=== PATIENT | female | born 1975 | race Caucasian/White ===

== ENCOUNTER 2016-11-08 09:34 | Emergency (ER) | payer OTHER ==
[~2016-11-08] VITALS: Ht 177.8 cm; Wt 96.2 kg
[~2016-11-08 09:34] MED LIST: ASPI-630 PO; ATOR40TA PO; ATOR80TA72 PO; CARV12.5 PO; CARV25TA2 PO; DIGO125T PO; GLIP-24 PO; GLIP5TAB10 PO; GUAI-107 PO; LEVO50CA PO; LISI10TA2 PO; LOSA50TA2 PO; MAGN400T22 PO; METF100010 PO; MULT-276 PO; OMEP10CA3 PO; SENN1TAB70 PO; SERT100T8 PO; SERT50TA PO; SPIR25TA3 PO; WARF-78 PO; WARF5TAB7 PO; WARF6TAB PO
[2016-11-08] MEDS ORDERED: HYDR-971 PO (09:52)
[2016-11-08] MEDS ORDERED: PRED20TA PO (09:52)
--- NOTE | 2016-11-08 09:55 | PHYS DOC ---
General Chief Complaint: LOWER EXT PAIN Stated Complaint: HIP PAIN Time Seen by MD: 09:45 Source: patient Exam Limitations: no limitations Problems: History of Present Illness Initial Comments Pt is 41/F to ED c/o right low back/hip/leg pain. Pt denies trauma/strenuous activity, states two days worsening right sided low back muscular pain/R buttock pain with posterior radiation back of right leg. No leg weakness/incontinence/saddle anesthesia. Pain described as 10/10 sharp worse with movement relieved some by rest. No other c/o. Timing/Duration: 24 hours Severity: severe Modifying Factors: worse with movement, improves with rest Associated Symptoms: other Allergies: Coded Allergies: No Known Drug Allergies (Unverified , 07/15/13) Past Medical History Medical History: other (anxiety, CHF, COPD, depression, DM, hypothyroid) Surgical History: other (CS, gastric bypass, TL) Family History Significant Family History: no pertinent family hx Social History Smoker: cigarettes Alcohol: occasionally Drugs: none Review of Systems Constitutional: denies chills, denies fever Respiratory: denies cough, denies shortness of breath Cardiovascular: denies chest pain, denies palpitations Gastrointestinal: denies nausea, denies vomiting Genitourinary: denies frequency, denies hematuria Musculoskeletal: see HPI Psychiatric/Neurological: see HPI Physical Exam General Appearance: moderate distress, obese Ear, Nose, Throat: normal ENT inspection Neck: non-tender, supple Respiratory: normal breath sounds, no respiratory distress Gastrointestinal: non tender, soft Back: no CVA tenderness, no vertebral tenderness Extremities: non-tender, normal inspection Neurologic/Psychiatric: 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 Rx: norco 5mg #15, prednisone. Heating pad to affected area 20 minutes, 4-6 times daily followed by gentle stretching. Follow up with your doctor this week for recheck. May need PT referral. Return to ED with new or changing symptoms. MATILDE KINNEY DO November 08, 2016 09:55
[2016-11-08] MEDS ORDERED: HYDROmorphone PF 1 MG/ML DISP.SYRIN ONE (09:56)
[2016-11-08] MEDS ORDERED: methylPREDNISolone SOD SUCC PF 125 MG/2 ML VIAL. ONE (09:56)
[2016-11-08] MEDS: HYDROmorphone PF 1 MG/ML DISP.SYRIN IM ONE (09:58)
[2016-11-08] MEDS: methylPREDNISolone SOD SUCC PF 125 MG/2 ML VIAL. IM ONE (09:58)
[2016-11-08 10:20] VITALS: BP 154/98
== END 2016-11-08 10:34 | disposition home or self-care (01) ==
LOC: ER 09:34
DX: M54.41 Lumbago with sciatica, right side (principal); J44.9 Chronic obstructive pulmonary disease, unspecified; E11.9 Type 2 diabetes mellitus without complications; E03.9 Hypothyroidism, unspecified; I50.9 Heart failure, unspecified; F17.210 Nicotine dependence, cigarettes, uncomplicated
CPT/HCPCS: 96372; 99284; J1170; J2930; 96374; 96375

== ENCOUNTER 2017-01-23 13:16 | Emergency (ER) | payer OTHER ==
[~2017-01-23] VITALS: Ht 177.8 cm; Wt 86.3 kg
[~2017-01-23 13:16] MED LIST changes: +HYDR-971 PO; +PRED20TA PO
[2017-01-23] MEDS ORDERED: ONDANSETRON PF 4 MG/2 ML VIAL. IV ONE ×2 (13:45→17:45)
[2017-01-23 13:54] LABS: BASO % 1 % (0-3); EOS % 0 % (0-3); HEMATOCRIT 28.3 % (36.0-47.0); HEMOGLOBIN 9.2 g/dL (12.0-15.5); LYMPH # 1.2 x10^3/uL (1.0-4.8); LYMPH % 26 % (24-48); MEAN CORPUSCULAR HEMOGLOBIN 33 pg (25-35); MEAN CORPUSCULAR HGB CONC 32 g/dL (31-37); MEAN CORPUSCULAR VOLUME 102 fL (79-100); MONO # 0.2 x10^3/uL (0.0-1.1); MONO % 5 % (0-9); NEUT # 3.3 x10^3uL (1.8-7.7); NEUT % 69 % (31-73); PLATELET COUNT 88 x10^3/uL (140-400); RED BLOOD COUNT 2.77 x10^6/uL (3.50-5.40); RED CELL DISTRIBUTION WIDTH 21.7 % (11.5-14.5); WHITE BLOOD COUNT 4.8 x10^3/uL (4.0-11.0)
[2017-01-23] MEDS ORDERED: MVI, ADULT NO.4 WITH VIT K 10 ML, FOLIC ACID SYRINGE for ER 1 MG, THIAMINE 100 MG in IV... IV SCH ×4 (14:00)
[2017-01-23 14:05] LABS: PREG TEST PT QUAL NEGATIVE (NEG)
[2017-01-23 14:10] LABS: ACETAMIN < 2.0 mcg/mL (10-30); SALIC < 0.2 mg/dL (2.8-20.0)
--- NOTE | 2017-01-23 14:10 | RAD ---
Single AP chest radiograph 01/23/2017 Clinical indication: Weakness, low blood pressure, jaundice and shortness of air. Comparison: Chest radiograph 09/01/2016. Findings: Prior median sternotomy and mitral valvular repair. Left chest wall cardiac connection device with ventricular and atrial leads in similar position. Cardiac and mediastinal silhouettes are within normal limits. No pleural effusion, pneumothorax or focal consolidation. Impression: Stable elevation of the right hemidiaphragm and mild right basilar atelectasis.
[2017-01-23 14:15] LABS: ALBUMIN 1.3 g/dL (3.4-5.0); CALCIUM 6.1 mg/dL (8.5-10.1); CREATININE 0.7 mg/dL (0.6-1.0); GFR 91.3; TOTAL BILIRUBIN 8.3 mg/dL (0.2-1.0); TOTAL PROTEIN 4.8 g/dL (6.4-8.2)
--- NOTE | 2017-01-23 14:15 | PHYS DOC ---
General Chief Complaint: WEAKNESS/GENERALIZED Stated Complaint: GENERALIZED WEAKNESS Time Seen by MD: 13:17 Source: patient, EMS, old records Problems: History of Present Illness Initial Comments Patient is a 41-year-old female brought to the ED by EMS with an initial complaint of severe sciatica and leg weakness. EMS reports they found the patient in bed hypotensive with liquor bottles scattered about the bedroom. She was found to have low blood pressure initially and normal saline bolus initiated by EMS. On arrival to the department the patient complains of severe weakness, nausea with emesis times one yesterday and greater than 10 loose stools today. Stools described as loose and watery nonbloody the patient denies focal abdominal pain complaints, bloating, or distention. Patient denies alcoholism, her son reports that although she may not drink daily when she does "she drinks a pint of vodka at a time." Patient is a poor historian and appears to be intoxicated on arrival. Family is not present in the department. 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 Patient is disabled due to her heart disease. Timing/Duration: 1 week, getting worse Severity: severe Modifying Factors: worse with eating, worse with movement Associated Symptoms: diaphoresis, headaches, malaise, nausea/vomiting, weakness , other Allergies: Coded Allergies: No Known Drug Allergies (Unverified , 07/15/13) Past Medical History Medical History: other (anxiety, CHF, COPD, depression, diabetes, hypothyroidism, "hepatitis as a child," sciatica, cardiomyopathy, morbid obesity , mitral valve disease secondary to prior Fen/Phen use, hypertension, hypothyroidism) Surgical History: other ( section 2, gastric bypass, mitral valve replacement, pacer/defibrillator placement 2017, tubal ligation) Family History Significant Family History: no pertinent family hx Social History Smoker: greater than 1 pack/day Alcohol: heavy Drugs: other Review of Systems Constitutional: denies chills, denies diaphoresis, denies fever, malaise, weakness EENTM: denies eye pain, denies blurred vision, denies ear pain, denies nose pain, denies throat pain, denies throat swelling, denies mouth pain, denies mouth swelling Respiratory: denies cough, denies shortness of breath, denies wheezing Cardiovascular: denies chest pain, denies palpitations, denies syncope Gastrointestinal: see HPI, abdominal pain, diarrhea, nausea, vomiting Genitourinary: denies dysuria, denies frequency, denies hematuria Musculoskeletal: denies back pain, denies joint swelling, denies neck pain Skin: change in color, denies lesions, denies lumps Psychiatric/Neurological: see HPI, denies headache, denies numbness, denies paresthesia Physical Exam General Appearance: moderate distress (jaundiced/icteric) Eyes: bilateral eye PERRL, bilateral eye EOMI, bilateral eye scleral icterus Ear, Nose, Throat: hearing grossly normal, normal ENT inspection (dry membranes , metallic piercing right nare), normal pharynx Neck: non-tender, supple Respiratory: normal breath sounds, no respiratory distress Cardiovascular: normal peripheral pulses, systolic murmur (mechanical valve) Gastrointestinal: soft (nondistended, diffusely tender to palpation without rebound or guarding, liver 3cm below costal margin, BS diminished) Back: no CVA tenderness, no vertebral tenderness Extremities: normal range of motion, non-tender, normal inspection, no calf tenderness Neurologic/Psychiatric: 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 Interpreted by Dr. Kinney. PATIENT: KIRSTIN GUTIERREZ ACCOUNT: [id number] : 1975 LOCATION: ER AGE: 41 SEX: F EXAM STATUS: REG ER ORD. PHYSICIAN: MATILDE KINNEY DO REASON: sob PROCEDURE: PORTABLE CHEST 1V Single AP chest radiograph 01/23/2017 Clinical indication: Weakness, low blood pressure, jaundice and shortness of air. Comparison: Chest radiograph 09/01/2016. Findings: Prior median sternotomy and mitral valvular repair. Left chest wall cardiac connection device with ventricular and atrial leads in similar position. Cardiac and mediastinal silhouettes are within normal limits. No pleural effusion, pneumothorax or focal consolidation. Impression: Stable elevation of the right hemidiaphragm and mild right basilar atelectasis. DICTATED AND SIGNED BY: NISHA JOSHI MD DATE: 01/23/17 1405 CC: PHYLICIA BUENO APRN; MATILDE KINNEY DO ~ PATIENT: KIRSTIN GUTIERREZ ACCOUNT: [id number] : 1975 LOCATION: ER AGE: 41 SEX: F EXAM STATUS: REG ER ORD. PHYSICIAN: MATILDE KINNEY DO REASON: n/v/d, jaundice PROCEDURE: CT ABD PELV W/ IV CONTRST ONLY CT of the abdomen and pelvis with contrast, 01/23/2017: History: Jaundice, weakness, recent falls Noncontrast scans were obtained following an IV bolus injection of iodinated contrast material. The scans through the lung bases demonstrate mild streaky right basilar atelectasis. The right hemidiaphragm is elevated. A mitral valve prosthesis is in place. Transvenous pacing leads are noted. Coronary artery calcifications are present. The liver is markedly enlarged measuring 31 cm in craniocaudad extent at the level of the right lobe. It is of markedly decreased density with an average CT number of negative 40-50 Hounsfield units. The appearance suggests severe fatty infiltration. These findings have developed since 09/01/2016. No hepatic mass or bile duct dilatation is seen. The gallbladder is mildly distended. It contains medium density material, likely sludge. No high density gallstones are seen. The pancreas is unremarkable. The spleen is of normal size. The kidneys show no evidence of obstruction. Aortoiliac calcific plaquing is present without evidence of aneurysm. No abdominal or pelvic adenopathy is seen. There are surgical sutures related to the stomach. The bowel loops are not dilated. There is generalized mural thickening involving the largely collapsed colon. No free air is present in the abdomen. There is a small amount of free fluid in the pelvis. IMPRESSION: 1. Interval development of marked hepatomegaly with severe fatty infiltration of the liver. The findings suggest acute steatohepatitis. 2. Small volume of ascites in the pelvis. 3. Colonic mural thickening may be related to the liver disease or represent nonspecific colitis. 4. Elevation of the right hemidiaphragm with mild right basilar atelectasis. PQRS Compliance Statement: One or more of the following individualized dose reduction techniques were utilized for this examination: 1. Automated exposure control 2. Adjustment of the mA and/or kV according to patient size 3. Use of iterative reconstruction technique DICTATED AND SIGNED BY: BRYANNA FRY MD DATE: 01/23/17 1510 CC: PHYLICIA BUENO MUSEUM REGISTRAR; NIRMALMATILDE DO ~ 1525: Patient has had 2 liter normal saline boluses and a banana bag IV, blood pressure remained 73/37 and levophed drip initiated. Pertinent labs: White blood cells 4.8, hemoglobin 9.2, MCV 102, platelets 88, INR 2.9, d-dimer 0.37, potassium 3.0, BUN 3, creatinine 0.7, lactic acid 4.7, albumin 1.3, corrected calcium 8.3, magnesium 1.0, total bilirubin 8.3, direct bilirubin 7.0, ALT 60, AST 361, troponin 0.055, BNP 746, ethanol 198 urinalysis with moderate squamous cells, 20-40 white blood cells, 3-5 red blood cells Patient will need to be admitted to the hospital I discussed this with her she would like to go where her cardiology group can see her. A call has been placed. 1601: I discussed the patient at length with Dr. Cavanaugh the patient's esthetician. After discussion he requested the patient be transferred to the ICU actually [facility], he will contact their transfer center and have them call us with an accepting hospitalist. 1721: I discussed the patient with Dr. Wheat hospitalist at [facility]. He accepts the patient for ICU admission at his facility via EMS transfer no further orders at this time. 1731: Pt resting comfortably, her SO here visiting. No new/progressive sx, current BP 92/54 as 2x levophed drip initiated. Patient received Zofran 4 mg IV, banana bag IV, 21 L normal saline boluses IV, Zosyn IV, potassium chloride 40 mEq IV, Klor-Con 40 mEq and Slow-Mag by mouth in the department. ED Course: 41/F with multiple medical problems to ED via EMS for weakness/ diarrhea. She's found to be hypotensive with equivocal urine study indicative of possible sepsis Zosyn IV given. She was also found to be intoxicated with evidence of possible chronic alcoholism and marked malnutrition and electrolyte abnormalities/acidosis. Attempts at IV hydration inadequate so levophed drip initiated. The patient was discussed with her esthetician and accepted for admission to [facility] for further evaluation and treatment. IMPRESSIONS: Acute steatohepatitis Alcohol intoxication/dependence Hypotension with equivocal urinalysis and possible sepsis Colitis Hypokalemia/hypomagnesemia Macrocytic anemia Thrombocytopenia Congestive heart failure Equivocal troponin I Severe protein calorie malnutrition Tobaccoism Departure Time of Disposition: 16:48 Disposition: 02 XFER SHT-TRM HOSP Diagnosis: hypotension possible sepsis, alcohol intoxication/ Condition: GUARDED Additional Instructions: EMS transfer to [facility] Dr. Wheat is the accepting physician. MATILDE KINNEY DO Jan 23, 2017 14:15
--- NOTE | 2017-01-23 14:31 | EKG ---
[address] [address] Test Date: 2017-01-23 Test Time: 14:07:05 Pat Name: KIRSTIN GUTIERREZ Department: Room: Gender: F Humidifier Attendant: : 1975 Requested By: MATILDE KINNEY Order Number: [id number] Reading MD: Measurements Intervals Bowman Rate: 71 P: NE: QRS: 27 QRSD: 112 T: 67 QT: 458 QTc: 498 Interpretive Statements ATRIAL FIBRILLATION QRS(T) CONTOUR ABNORMALITY CONSIDER ANTEROSEPTAL MYOCARDIAL DAMAGE CONSISTENT WITH INFERIOR INFARCT PROBABLY OLD RI6.01 Unconfirmed report No previous ECG available for comparison
[2017-01-23] MEDS ORDERED: POTASSIUM CL 40MEQ IN 0.9%NACL 1,000 ML IV ONE ×2 (14:54→15:30)
[2017-01-23] MEDS ORDERED: IOHEXOL 300 MG/ML 75 ML VIAL. IV ONE (14:55)
[2017-01-23] MEDS ORDERED: POTASSIUM CHLORIDE 20 MEQ TABLET.ER. PO ONE (15:00)
[2017-01-23] MEDS ORDERED: MAGNESIUM CHLORIDE ER 64 MG TABLET.ER PO ONE (15:00)
[2017-01-23 15:06] LABS: BARBITURATES NEG (NEG); BENZODIAZEPINES NEG (NEG); CANNABINOIDS NEG (NEG); COCAINE NEG (NEG); METHADONE NEG (NEG); OPIATES NEG (NEG); PHENCYCLIDINE NEG (NEG)
[2017-01-23 15:07] LABS: AMPHETAMINE/METHAMPHETAMINE NEG (NEG)
[2017-01-23 15:10] LABS: BILIRUBIN,URINE LARGE (NEG); CLARITY,URINE HAZY; COLOR,URINE ORANGE; GLUCOSE,URINE 100 mg/dL (NEG)
[2017-01-23 15:11] LABS: WBC,URINE 20-40 /HPF (0-4)
[2017-01-23 15:12] LABS: BACTERIA,URINE MANY /HPF (0-FEW)
[2017-01-23 15:13] LABS: SQUAMOUS EPITHELIAL CELL,UR MOD /LPF
[2017-01-23 15:14] LABS: HYALINE CASTS, URINE MOD /HPF
--- NOTE | 2017-01-23 15:29 | RAD ---
CT of the abdomen and pelvis with contrast, 01/23/2017: History: Jaundice, weakness, recent falls Noncontrast scans were obtained following an IV bolus injection of iodinated contrast material. The scans through the lung bases demonstrate mild streaky right basilar atelectasis. The right hemidiaphragm is elevated. A mitral valve prosthesis is in place. Transvenous pacing leads are noted. Coronary artery calcifications are present. The liver is markedly enlarged measuring 31 cm in craniocaudad extent at the level of the right lobe. It is of markedly decreased density with an average CT number of negative 40-50 Hounsfield units. The appearance suggests severe fatty infiltration. These findings have developed since 09/01/2016. No hepatic mass or bile duct dilatation is seen. The gallbladder is mildly distended. It contains medium density material, likely sludge. No high density gallstones are seen. The pancreas is unremarkable. The spleen is of normal size. The kidneys show no evidence of obstruction. Aortoiliac calcific plaquing is present without evidence of aneurysm. No abdominal or pelvic adenopathy is seen. There are surgical sutures related to the stomach. The bowel loops are not dilated. There is generalized mural thickening involving the largely collapsed colon. No free air is present in the abdomen. There is a small amount of free fluid in the pelvis. IMPRESSION: 1. Interval development of marked hepatomegaly with severe fatty infiltration of the liver. The findings suggest acute steatohepatitis. 2. Small volume of ascites in the pelvis. 3. Colonic mural thickening may be related to the liver disease or represent nonspecific colitis. 4. Elevation of the right hemidiaphragm with mild right basilar atelectasis. PQRS Compliance Statement: One or more of the following individualized dose reduction techniques were utilized for this examination: 1. Automated exposure control 2. Adjustment of the mA and/or kV according to patient size 3. Use of iterative reconstruction technique
[2017-01-23] MEDS ORDERED: IV NORMAL SALINE 250ML 250 ML ONE (15:30)
[2017-01-23] MEDS ORDERED: NOREPINEPHRINE BITARTRATE 4 MG/4 ML VIAL. IV ONE (15:30)
[2017-01-23] MEDS ORDERED: NOREPINEPHRINE BITARTRATE 8 MG in IV NORMAL SALINE 250ML 250 ML IV PRN ×2 (15:30→17:00)
[2017-01-23] MEDS ORDERED: PIP/TAZO PER PHARMACY MC PRN (15:45)
[2017-01-23] MEDS ORDERED: PIPERACILLIN/TAZOBACTAM 3.375 GM in IV NORMAL SALINE 50ML 50 ML IV ONE (16:00)
[2017-01-23] MEDS ORDERED: PIPERACILLIN/TAZOBACTAM 3.375 GM VIAL IV ONE (16:05)
[2017-01-23] MEDS ORDERED: IV NORMAL SALINE 50ML 50 ML ONE (16:05)
[2017-01-23] MEDS ORDERED: NOREPINEPHRINE BITARTRATE 16 MG in IV NORMAL SALINE 250ML 250 ML IV PRN ×4 (17:00)
[2017-01-23 18:48] VITALS: BP 96/64
[2017-01-23 22:29] LABS: ANISOCYTOSIS SLIGHT; OVALOCYTES OCC; PLT ESTIMATE DECREASED (ADEQUATE); POLYCHROMASIA SLIGHT
== END 2017-01-23 18:57 | disposition short-term general hospital (02) ==
LOC: ER 13:16
DX: K75.81 Nonalcoholic steatohepatitis (NASH) (principal); I95.9 Hypotension, unspecified; K52.9 Noninfective gastroenteritis and colitis, unspecified; D53.9 Nutritional anemia, unspecified; D69.6 Thrombocytopenia, unspecified; I11.0 Hypertensive heart disease with heart failure; I50.9 Heart failure, unspecified; E43 Unspecified severe protein-calorie malnutrition; R79.89 Other specified abnormal findings of blood chemistry; J44.9 Chronic obstructive pulmonary disease, unspecified; I25.10 Atherosclerotic heart disease of native coronary artery without angina pectoris; E03.9 Hypothyroidism, unspecified; E11.9 Type 2 diabetes mellitus without complications; Z95.2 Presence of prosthetic heart valve; Z87.891 Personal history of nicotine dependence; Z98.84 Bariatric surgery status
CPT/HCPCS: 36415; 51701; 71010; 74177; 80048; 80076; 80307; 81001; 82550; 83605; 83690; 83735; 83880; 84484; 84703; 85008; 85027; 85379; 85610; 85730; 87040; 87086; 87186; 93005; 96365; 96366; 96368; 96375; 99285; G0480; J2405; J2543; J7050; Q9967; G0479; J7030